=== PATIENT | female | born 1960 | race Caucasian/White ===

== ENCOUNTER → 2017-08-06 05:28 | Emergency (ER) | payer OTHER ==
[~2017-08-06 05:28] MED LIST: Acetaminophen TAB* 325 MG PO ONE; Tetan/Diph/Pertus SYR(Tdap)* 0.5 ML SYR(BOOSTRIX) use SYR IM ONE
[2017-08-06 05:34] VITALS: BP 133/85
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
== END | disposition home or self-care (01) ==
LOC: ED 05:28
DX: S61.011A Laceration without foreign body of right thumb without damage to nail, initial encounter (principal); W26.8XXA Contact with other sharp object(s), not elsewhere classified, initial encounter; Y92.9 Unspecified place or not applicable; F17.210 Nicotine dependence, cigarettes, uncomplicated
CPT/HCPCS: 12001; 90471; 90715; 99282; A9270-GY

== ENCOUNTER 2017-08-21 11:14 | Emergency (ER) | payer SELFPAY ==
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
[2017-08-21 11:53] VITALS: BP 105/66
== END 2017-08-21 12:04 | disposition home or self-care (01) ==
LOC: ED 11:14
DX: Z48.02 Encounter for removal of sutures (principal); Z72.0 Tobacco use
CPT/HCPCS: 99281

== ENCOUNTER 2018-01-06 10:39 | Emergency (ER) | payer MEDICAID, OTHER ==
[2018-01-06 10:53] VITALS: BP 116/83
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
== END 2018-01-06 12:33 | disposition home or self-care (01) ==
LOC: UCEAST 10:39
DX: R19.09 Other intra-abdominal and pelvic swelling, mass and lump (principal); F17.210 Nicotine dependence, cigarettes, uncomplicated; Z88.0 Allergy status to penicillin; Z88.2 Allergy status to sulfonamides
CPT/HCPCS: 99211; G0463

== ENCOUNTER 2018-01-06 18:34 | Emergency (ER) | payer OTHER ==
[2018-01-06 20:11] LABS: ABS Basophils 0.1 10^3/ul (0-0.2); ABS Eosinophils 0.1 10^3/ul (0-0.6); ABS Lymphocytes 3.9 10^3/ul (1.0-4.8); ABS Monocytes 0.7 10^3/ul (0-0.8); ABS Neutrophils 6.5 10^3/ul (1.5-7.7); ABS Nucleated RBC 0 10^3/ul; Hematocrit 43 % (35-47); Hemoglobin 14.5 g/dl (12.0-16.0); Lymphocyte % 34.7 % (25-47); Mean Corpuscular HGB Conc 34 g/dl (31-36); Mean Corpuscular Hemoglobin 31 pg (27-31); Mean Corpuscular Volume 91 fL (80-97); Mean Platelet Volume 8.9 fL (7.4-10.4); Nucleated Red Blood Cells % 0.2; Platelet Count 244 10^3/ul (150-450); Red Blood Count 4.72 10^6/ul (4.00-5.40); Red Cell Distribution Width 14 % (10.5-15); White Blood Count 11.4 10^3/ul (3.5-10.8)
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
[2018-01-06 20:27] LABS: EGFR Non-African American 64.2 (>60)
[2018-01-06 21:47] VITALS: BP 116/77
== END 2018-01-06 21:46 | disposition home or self-care (01) ==
LOC: ED 18:34
DX: K40.90 Unilateral inguinal hernia, without obstruction or gangrene, not specified as recurrent (principal); Z88.0 Allergy status to penicillin; F17.210 Nicotine dependence, cigarettes, uncomplicated
CPT/HCPCS: 36415; 80053; 85025; 86140; 99281